=== PATIENT | female | born 1930 | race Caucasian/White ===

== ENCOUNTER 2017-09-14 07:59 | Day surgery (SDC) | payer MEDICARE ==
[2017-09-13 12:26] VITALS: BMI 35.3
[2017-09-14] MEDS ORDERED: CEFAZOLIN/Water 2 GM/20 ML SYRINGE ONE (09:16)
[2017-09-14] MEDS ORDERED: Bupivacaine/Epinephrine 0.25% 30 ML VIAL ONE ×2 (09:57)
[2017-09-14] MEDS ORDERED: Bacitracin Zinc Ointment 30 gm TUBE ONE (10:49)
[2017-09-14] MEDS ORDERED: Lidocaine 1% PF 5 ML VIAL ONE (13:50)
[2017-09-14] MEDS ORDERED: Ketorolac Tromethamine 30 MG/ML VIAL ONE (13:50)
[2017-09-14] MEDS ORDERED: PROPOFOL 200 MG/20 ML VIAL ONE (13:50)
[2017-09-14] MEDS ORDERED: ePHEDrine/0.9% NaCl/PF SYRINGE 50 mg/10 ml ONE (13:50)
--- NOTE | 2017-09-15 10:26 | OP ---
DATE OF PROCEDURE: 09/14/2017 PREOPERATIVE DIAGNOSES: 1. 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 2. 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 PROCEDURE: 1. Wide local excision of skin malignancy chest with complex layered closure. 2. Excision of malignant neoplasm left posterior auricular with a complex layered closure. SURGEON: Luis Arellano M.D. ANESTHESIA: General. ESTIMATED BLOOD LOSS: Minimal. COMPLICATIONS: None. FINDINGS: Margins negative on frozen section of chest malignancy, the medial margin on the posterior auricular lesion was positive on first resection. Final medial margin sent is permanent. TECHNIQUE: The patient was taken to the operating room, placed supine on the table after general ane sthetic was obtained. The chest and left posterior auricular region are prepped and draped in a ster ile fashion. A 6 cm elliptical incision is made transversely over and around the chest malignancy. It is sent to path for frozen section which revealed malignancy with negative margins. Extensive und ermining is performed. The wound was closed in multiple layers using Vicryl and Dermabond. The left posterior auricular ulcerated lesion is approximately 1.5 cm in diameter. Incision was made anteriorly in the preauricular area down behind the ear and into the upper posterior neck. The init ial margin of resection is 1.5 cm diameter total. Specimen is marked and sent for frozen section rev ealed the medial margin to be positive. Additional medial margin is performed and sent as medial mar gin and then a shave of the new margin is sent and all as final margin. The wound is irrigated. Loc al anesthetic is applied. Again undermining is performed and the wound closed in multiple layers usi ng Vicryl and Prolene. The patient en route to recovery in stable condition. All instrument counts, needle counts, lap counts are correct.
--- NOTE | 2017-09-27 22:49 | EKG ---
Test Reason : PREOP Blood Pressure : / mmHG Vent. Rate : 056 BPM Atrial Rate : 056 BPM P-R Int : 208 ms QRS Dur : 114 ms QT Int : 426 ms P-R-T Axes : 014 -57 -03 degrees QTc Int : 411 ms Sinus bradycardia Left anterior fascicular block Minimal voltage criteria for LVH, may be normal variant Abnormal ECG No previous ECGs available Confirmed by Deena CONN ([id number]) on 09/27/2017 10:48:37 PM Referred By: STONE Confirmed By:Deena CONN
== END 2017-09-14 14:10 | disposition home or self-care (01) ==
LOC: SDC 07:59
PROVIDERS: ATTEND Surgery
PROC: 0HB3XZZ Excision of Left Ear Skin, External Approach (ICD-10-PCS; principal; 2017-09-14)
PROC: 0HB5XZZ Excision of Chest Skin, External Approach (ICD-10-PCS; 2017-09-14)
DX: C44.219 Basal cell carcinoma of skin of left ear and external auricular canal (principal); C44.529 Squamous cell carcinoma of skin of other part of trunk; I10 Essential (primary) hypertension; M19.90 Unspecified osteoarthritis, unspecified site; I73.9 Peripheral vascular disease, unspecified; F03.90 Unspecified dementia, unspecified severity, without behavioral disturbance, psychotic disturbance, mood disturbance, and anxiety; Z79.82 Long term (current) use of aspirin; Z79.899 Other long term (current) drug therapy
CPT/HCPCS: 88304; 88305; 88331; 88332; 93005; 93010; J1885; J2001; J2704